=== PATIENT | male | born 1950 | race Caucasian/White ===

== ENCOUNTER 2019-03-15 09:01 | Day surgery (SDC) | payer MEDICARE ==
[~2019-03-15] VITALS: Ht 188 cm; Wt 68.5 kg
[2019-03-15] VITALS (10 sets, daily range): BP systolic 90–104; BP diastolic 52–68
[~2019-03-15 09:01] MED LIST: POTA10CA44 PO; TORS20TA3 PO
[2019-03-15] MEDS ORDERED: diphenhydrAMINE 25mg capsule PO PRN (09:30)
[2019-03-15] MEDS ORDERED: normal saline 1,000 ML IV SCH (09:30)
[2019-03-15] MEDS ORDERED: COU7.5T PO (09:51)
[2019-03-15] MEDS ORDERED: NITR0.4T48 SL (09:51)
[2019-03-15] MEDS ORDERED: EVOL140S (09:51)
[2019-03-15] MEDS ORDERED: TORS100T15 PO (09:51)
[2019-03-15] MEDS ORDERED: SPIR50TA5 PO (09:51)
[2019-03-15] MEDS ORDERED: CARV25TA2 PO (09:51)
[2019-03-15 10:01] LABS: ALBUMIN 4.1 G/DL (3.4-5.0); ANION GAP 10 (8-16); BASOPHILS # (AUTO) 0.1 X10'3 (0-0.2); BASOPHILS % (AUTO) 1.8 % (0-1); BLOOD UREA NITROGEN 22 MG/DL (7-18); BUN/CREATININE RATIO 22.7 (5.4-32.0); CHLORIDE 89 MMOL/L (99-107); CREATININE 0.97 MG/DL (0.60-1.10); EOSINOPHILS # (AUTO) 0.4 X10'3 (0-0.9); EOSINOPHILS % (AUTO) 13.9 % (0-6); GLUCOSE 65 MG/DL (70-104); HEMATOCRIT 42.1 % (42.0-52.0); HEMOGLOBIN 14.5 g/dl (14.0-17.9); LYMPHOCYTES # (AUTO) 0.4 X10'3 (1.1-4.8); LYMPHOCYTES % (AUTO) 14.4 % (21-51); MAGNESIUM 1.9 MG/DL (1.5-2.4); MEAN CORPUSCULAR HEMOGLOBIN 37.9 PG (27.0-31.0); MEAN CORPUSCULAR HGB CONC 34.5 g/dL (33.0-36.5); MEAN CORPUSCULAR VOLUME 109.9 FL (78-98); MEAN PLATELET VOLUME 9.7 FL (7.4-10.4); MONOCYTES # (AUTO) 0.5 X10'3 (0-0.9); MONOCYTES % (AUTO) 15.7 % (2-12); NEUTROPHILS # (AUTO) 1.7 X10'3 (1.8-7.7); NEUTROPHILS % (AUTO) 54.2 % (42-75); PLATELET COUNT 124 X10'3 (140-440); RED BLOOD COUNT 3.83 X10'6 (4.70-6.10); RED CELL DISTRIBUTION WIDTH 14.4 % (11.5-14.5); SODIUM 126 MMOL/L (135-145); TOTAL CARBON DIOXIDE 27.5 MMOL/L (24-32); eGFR 77 ML/MIN
[2019-03-15] MEDS ORDERED: iohexol 350 MG/ML 50ML vial IV ONE (11:19)
[2019-03-15] MEDS ORDERED: LIDOcaine 1% (10mg/ml)w/preservative injection 20ml MDV ONE (11:19)
[2019-03-15] MEDS ORDERED: fentaNYL/PF 50MCG/1 ML 2ML syringe ONE (11:19)
[2019-03-15] MEDS ORDERED: midazolam 2 mg/2 ml injection ONE ×2 (11:19→12:03)
[2019-03-15] MEDS ORDERED: iohexol 350MG/ML 100ml bottle IV ONE ×3 (11:19→12:30)
[2019-03-15 11:59] LABS: ANISOCYTOSIS 1+; PLATELET ESTIMATE DECREASED; TOTAL CELLS COUNTED 100
[2019-03-15 12:00] LABS: POIKILOCYTOSIS FEW
[2019-03-15 12:02] LABS: ACANTHOCYTES FEW
[2019-03-15] MEDS ORDERED: proCHLORperazine 10 MG/2 ml inj ONE (12:02)
== END 2019-03-15 15:55 | disposition home or self-care (01) ==
LOC: SSTAY O 09:01
PROVIDERS: ATTEND Internal Medicine Cardiovascular Disease
DX: I25.118 Atherosclerotic heart disease of native coronary artery with other forms of angina pectoris (principal); I42.9 Cardiomyopathy, unspecified; I25.82 Chronic total occlusion of coronary artery; I10 Essential (primary) hypertension; E03.9 Hypothyroidism, unspecified; F41.9 Anxiety disorder, unspecified; J45.909 Unspecified asthma, uncomplicated; Z90.49 Acquired absence of other specified parts of digestive tract; Z98.890 Other specified postprocedural states; Z79.899 Other long term (current) drug therapy; Z88.0 Allergy status to penicillin; Z88.8 Allergy status to other drugs, medicaments and biological substances
CPT/HCPCS: 36415; 80048; 83735; 85025; 85610; 93459; 99152; 99153; A6257; C1769; C1894; J0780; J1644; J2001; J2250; J3010; J7030; Q0163; Q9967; 93005; A4620

== ENCOUNTER 2019-07-12 10:54 | Day surgery (SDC) | payer MEDICARE ==
[2019-07-12] VITALS (8 sets, daily range): BP systolic 97–131; BP diastolic 56–84
[~2019-07-12] VITALS: Ht 182.9 cm; Wt 72.8 kg
[~2019-07-12 10:54] MED LIST changes: +CARV25TA2 PO; +COU7.5T PO; +EVOL140S; +NITR0.4T48 SL; -POTA10CA44 PO; +SPIR50TA5 PO; +TORS100T15 PO; -TORS20TA3 PO
[2019-07-12 11:33] LABS: BASOPHILS # (AUTO) 0.1 X10'3 (0-0.2); EOSINOPHILS # (AUTO) 0.3 X10'3 (0-0.9); EOSINOPHILS % (AUTO) 10.7 % (0-6); HEMATOCRIT 40.6 % (42.0-52.0); HEMOGLOBIN 13.8 g/dl (14.0-17.9); LYMPHOCYTES # (AUTO) 0.3 X10'3 (1.1-4.8); LYMPHOCYTES % (AUTO) 8.7 % (21-51); MEAN CORPUSCULAR HEMOGLOBIN 37.6 PG (27.0-31.0); MEAN CORPUSCULAR HGB CONC 33.9 g/dL (33.0-36.5); MEAN CORPUSCULAR VOLUME 110.9 FL (78-98); MEAN PLATELET VOLUME 8.8 FL (7.4-10.4); MONOCYTES # (AUTO) 0.6 X10'3 (0-0.9); MONOCYTES % (AUTO) 18.4 % (2-12); NEUTROPHILS # (AUTO) 1.9 X10'3 (1.8-7.7); NEUTROPHILS % (AUTO) 60.2 % (42-75); PLATELET COUNT 133 X10'3 (140-440); RED BLOOD COUNT 3.66 X10'6 (4.70-6.10); RED CELL DISTRIBUTION WIDTH 14.5 % (11.5-14.5); WHITE BLOOD COUNT 3.2 X10'3 (4.5-11.0)
[2019-07-12] MEDS ORDERED: diphenhydrAMINE 25mg capsule PO PRN (11:35)
[2019-07-12] MEDS ORDERED: normal saline 1,000 ML IV SCH (11:35)
[2019-07-12 11:42] LABS: ALBUMIN 3.8 G/DL (3.4-5.0); ANION GAP 10 (8-16); BLOOD UREA NITROGEN 47 MG/DL (7-18); CALCIUM 8.8 MG/DL (8.5-10.1); CHLORIDE 98 MMOL/L (99-107); GLUCOSE 99 MG/DL (70-104); POTASSIUM 4.4 MMOL/L (3.5-5.1); SODIUM 133 MMOL/L (135-145); TOTAL CARBON DIOXIDE 25.5 MMOL/L (24-32); eGFR 75 ML/MIN
[2019-07-12] MEDS ORDERED: MELA1TAB17 PO (11:43)
[2019-07-12 12:04] LABS: PLATELET ESTIMATE DECREASED
[2019-07-12 12:05] LABS: ACANTHOCYTES FEW; BURR CELLS FEW; ELLIPTOCYTES FEW
[2019-07-12] MEDS ORDERED: ceFAZolin 1GM/D5W- ADD-VANTAGE 50 ML IV ONE (12:51)
[2019-07-12] MEDS ORDERED: fentaNYL/PF 50MCG/1 ML 2ML syringe ONE (12:51)
[2019-07-12] MEDS ORDERED: ceFAZolin 1000mg inj ONE (12:51)
[2019-07-12] MEDS ORDERED: midazolam 2 mg/2 ml injection ONE ×2 (12:51→13:43)
[2019-07-12] MEDS ORDERED: vancomycin 1,000mg inj ONE ×3 (12:52→14:13)
[2019-07-12] MEDS ORDERED: LIDOcaine 1% W/epiNEPHrine 1:100,000 20ml vial ONE ×2 (12:52→15:08)
[2019-07-12] MEDS ORDERED: iohexol 350 MG/ML 50ML vial IV ONE ×3 (13:58→14:24)
[2019-07-12] MEDS ORDERED: heparin 1,000 UNITS/NS 500ml 500 ML ONE (14:03)
[2019-07-12] MEDS ORDERED: ketorolac tromethamine 15mg/ml inj. IV ONE (15:55)
[2019-07-12] MEDS ORDERED: normal saline 1000ml 1,000 ML IV SCH (15:55)
== END 2019-07-12 19:10 | disposition home or self-care (01) ==
LOC: SSTAY O 10:54
PROVIDERS: ATTEND Internal Medicine Cardiovascular Disease
DX: Z45.02 Encounter for adjustment and management of automatic implantable cardiac defibrillator (principal); I42.0 Dilated cardiomyopathy; I45.4 Nonspecific intraventricular block; Z98.890 Other specified postprocedural states
CPT/HCPCS: 33225; 33264; 36415; 71045; 80048; 83735; 85025; 85610; 93005; 93641; 99152; 99153; C1769; C1887; C1900; J0690; J1644; J1885; J2250; J3010; J3370; J7030; Q0163; Q9967; 33221; 33224; 33229; A4565; A4620; C1882